=== PATIENT | male | born 1970 | race Caucasian/White ===

== ENCOUNTER 2018-09-01 05:43 | Inpatient (IN) | payer OTHER ==
[~2018-09-01 05:43] MED LIST: Buffered Lidocaine 1% SYRIN* 1 ML/SYRINGE INTRADERM ONE
--- OUTSIDE RECORDS SUMMARY | 2018-09-01 05:48 | XMS REPORT | Continuity of Care Document ---
:1970 External Reference #:[id number] Author Name Efren Jeffries Care Team Providers Name Role Phone Christopher Smith MD Primary Care Physician Unavailable Payers Date Identification Numbers Payment Provider Subscriber Effective: 2018 Policy Number: [id number] Yordy Solorzano PayID: [id number] [address] [place] [address] Onset: 2018 Policy Number: [id number] Travel[employer] Leonel Solorzano Group Name: (d) [phone] [address] PayID: [place] [address] Expires: 2018 Policy Number: [id number] Controverted Leonel Solorzano Onset: 2018 PayID: [id number] Effective: 2018 Policy Number: [id number] Medicaid Leonel Solorzano Expires: 2018 Group Name: 1 1 [address] PayID: [id number] [place] [address] Problems Active Problems Provider Date Carpal tunnel syndrome of left wrist Christopher Smith MD Onset: 04/15/2018 Lateral epicondylitis Christopher Smith MD Onset: 04/15/2018 Brachial plexus disorder Christopher Smith MD Onset: 04/15/2018 Family History Date Family Member(s) Observation Comments Father Alcoholism Living Age 75yrs Mother No Current Problems Living Age 81yrs Social History Type Date Description Comments Sex Unknown Marital Status Single Lives With Roommate Occupation Currently Working [employer] Occupation currently unemployed Tobacco Use Start: Unknown Current Cigarette Pack Years 15-20yrs Smoker 5-10 Cigarettes Daily ETOH Use Drinks Alcoholic Beverages Rarely ETOH Use Current Alcoholic 6-12 drinks weekly Beverage ETOH Use pt is currenlty abusing etoh and gabapentin Recreational Drug Use Denies Drug Use Tobacco Use Start: Unknown Light tobacco smoker (10 or fewer cigarettes/day) Smoking Status Reviewed: 08/19/18 Light tobacco smoker (10 or fewer cigarettes/day) Exercise Type/Frequency Does not exercise Currently Active Patient is currently not sexually active Allergies, Adverse Reactions, Alerts Description No Known Drug Allergies Medications Active Medications SIG Qnty Indications Ordering Provider Date Gabapentin 2 bid and one 150caps M50.10 Christopher 04/01/2018 300mg at noon MD Sarah Capsules Centrum Silver 1 by mouth Unknown Tablets every day History Medications Gabapentin 2 by mouth 180caps M50.10 Christopher Smith 03/22/2018 - 100mg three times a 04/01/2018 Capsules day Wrist use on lt 1units G56.02 Christopher Smith 03/22/2018 - Splint/Cock-Up/Lef wrist every 07/26/2018 t/Canvas/Large night Misc Tennis Elbow Strap use below the 1units M77.12 Christopher Smith 2018 - Lt elbow 07/26/2018 Misc daily Ibuprofen 1 by mouth 45tabs M25.512 Christopher Smith 03/16/2018 - 800mg three times a 07/26/2018 Tablets day Vital Signs Date Vital Result Comment 08/19/2018 8:16am Height 73 inches 6'1" Weight 215.00 lb Heart Rate 88 /min BP Systolic 118 mmHg BP Diastolic 88 mmHg Body Temperature 96.9 F O2 % BldC Oximetry 95 % BMI (Body Mass Index) 28.4 kg/m2 08/12/2018 11:09am Height 72 inches 6'0" Weight 190.00 lb BP Systolic Sitting 128 mmHg BP Diastolic Sitting 80 mmHg Pain Level 11 BMI (Body Mass Index) 25.8 kg/m2 07/27/2018 2:15pm Height 72 inches 6'0" Weight 212.00 lb Heart Rate 78 /min BP Systolic Sitting 136 mmHg BP Diastolic Sitting 89 mmHg Respiratory Rate 24 /min no resp difficulties Pain Level 10 O2 % BldC Oximetry 97 % BMI (Body Mass Index) 28.7 kg/m2 06/27/2018 1:42pm Height 72 inches 6'0" Weight 212.00 lb Heart Rate 95 /min BP Systolic Sitting 126 mmHg BP Diastolic Sitting 74 mmHg Respiratory Rate 16 /min Body Temperature 98.1 F Pain Level 9 BMI (Body Mass Index) 28.7 kg/m2 06/22/2018 2:33pm Height 72 inches 6'0" Weight 212.56 lb BP Systolic Sitting 130 mmHg BP Diastolic Sitting 82 mmHg Body Temperature 98.2 F BMI (Body Mass Index) 28.8 kg/m2 06/06/2018 10:37am Height 72 inches 6'0" Weight 210.00 lb Heart Rate 88 /min BP Systolic 128 mmHg BP Diastolic 78 mmHg O2 % BldC Oximetry 95 % BMI (Body Mass Index) 28.5 kg/m2 05/04/2018 9:15am Weight 212.00 lb BP Systolic 136 mmHg BP Diastolic 92 mmHg 04/19/2018 3:17pm Weight 206.00 lb BP Systolic 146 mmHg BP Diastolic 95 mmHg 04/15/2018 8:30am Weight 203.00 lb BP Systolic Sitting 142 mmHg BP Diastolic Sitting 88 mmHg 03/30/2018 4:58pm Weight 203.00 lb BP Systolic 134 mmHg BP Diastolic 68 mmHg 03/18/2018 10:05am Height 72.75 inches 6'0.75" Weight 190.00 lb Heart Rate 106 /min BP Systolic Sitting 158 mmHg BP Diastolic Sitting 100 mmHg Respiratory Rate 18 /min Pain Level 8 BMI (Body Mass Index) 25.2 kg/m2 03/16/2018 10:16am Height 72.75 inches 6'0.75" Weight 197.00 lb Heart Rate 106 /min BP Systolic 134 mmHg BP Diastolic 86 mmHg Respiratory Rate 16 /min BMI (Body Mass Index) 26.2 kg/m2 Results Test Date Facility Test Result H/L Range Note Lipid Profile 06/29/2018 [facility] Triglycerides 58 mg/dL 1 (Trig/Chol/HDL) [address] [place] [address] [phone] Cholesterol 208 mg/dL 2 HDL Cholesterol 96.2 mg/dL 3 LDL Cholesterol 100 mg/dL 4 Basic Metabolic Panel 06/29/2018 [facility] Sodium 141 mmol/L N 135-145 [address] [place] [address] [phone] Potassium 4.6 mmol/L N 3.5-5.0 Chloride 106 mmol/L N 101-111 Co2 Carbon Dioxide 28 mmol/L N 22-32 Anion Gap 7 mmol/L N 2-11 Glucose 84 mg/dL N 70-100 Blood Urea Nitrogen 11 mg/dL N 6-24 Creatinine 0.85 mg/dL N 0.67-1.17 BUN/Creatinine Ratio 12.9 N 8-20 Calcium 10.0 mg/dL N 8.6-10.3 Egfr Non- 96.2 >60 Egfr 116.4 >60 5 CBC Auto Diff 06/29/2018 [facility] White Blood 7.8 10^3/uL N 3.5-10.[address] [place] [address] [phone] Red Blood Count 5.18 10^6/uL N 4.18-5.48 Hemoglobin 16.6 g/dL N 14.0-18.0 Hematocrit 50 % N 42-52 Mean Corpuscular Volume 96 fL High 80-94 Mean Corpuscular Hemoglobin 32 pg High 27-31 Mean Corpuscular HGB Conc 34 g/dL N 31-36 Red Cell Distribution Width 14 % N 10.5-15 Platelet Count 275 10^3/uL N 150-450 Mean Platelet Volume 8.5 fL N 7.4-10.4 Abs Neutrophils 4.4 10^3/uL N 1.5-7.7 Abs Lymphocytes 2.2 10^3/uL N 1.0-4.8 Abs Monocytes 0.8 10^3/uL N 0-0.8 Abs Eosinophils 0.3 10^3/uL N 0-0.6 Abs Basophils 0.1 10^3/uL N 0-0.2 Abs Nucleated RBC 0.0 10^3/uL Granulocyte % 56.6 % Lymphocyte % 28.6 % Monocyte % 10.1 % Eosinophil % 3.5 % Basophil % 1.2 % Nucleated Red Blood Cells % 0.0 Laboratory test 06/29/2018 [facility] PSA Screening 1.703 ng/mL N 0-4.000 [address] [place] [address] [phone] Desirable: <150 Borderline High: 150-199 High: 200-499 Very High: >500 2 Desirable: <200 Borderline High: 200-239 High: >239 3 Low: <40 Desirable: 40-60 High: >60 4 Desirable: <100 Near Optimal: 100-129 Borderline High: 130-159 High: 160-189 Very High: >189 5 Because ethnic data is not always readily available, this report includes an eGFR for both -Americans and non- Americans. The National Kidney Disease Education Program (NKDEP) does not endorse the use of the MDRD equation for patients that are not between the ages of 18 and 70, are , have extremes of body size, muscle mass, or nutritional status, or are non- or non-. According to the National Kidney Foundation, irrespective of diagnosis, the stage of the disease is based on the level of kidney function: Stage Description GFR(mL/min/1.73 m(2)) 1 Kidney damage with normal or decreased GFR 90 2 Kidney damage with mild decrease in GFR 60-89 3 Moderate decrease in GFR 30-59 4 Severe decrease in GFR 15-29 5 Kidney failure <15 (or dialysis) 6 Serum levels of PSA measured using the [email or web address] DXI Hybritech immunoassay should not be interpreted as absolute evidence of the presence or absence of disease. The PSA value should be used in conjunction with other pertinent clinical diagnostic procedures. The values obtained with different assay methods or kits cannot be used interchangeably. Procedures Date Code Description Status 08/19/2018 43566 EKG Tracing & Interpretation Completed 03/18/2018 09047 Rad Shoulder Comp, Min. 2 Views Completed Encounters Type Date Location Provider Dx Diagnosis Office Visit 06/28/2018 [facility] Christopher M50.10 Cervical disc 4:00p MD Sarah disorder w radiculopathy, unsp cervical region Office Visit 06/27/2018 [facility] M50.10 Cervical disc 1:30p [facility] MD Lee disorder w radiculopathy, unsp cervical region Office Visit 06/22/2018 [facility] FACUNDO Brown R10.84 Generalized 2:30p abdominal pain R16.0 Hepatomegaly, not elsewhere classified F10.129 Alcohol abuse with intoxication, unspecified T50.905A Adverse effect of unsp drug/meds/biol subst, init R00.0 Tachycardia, unspecified M25.512 Pain in left shoulder R10.84 Generalized abdominal pain M79.602 Pain in left arm R16.0 Hepatomegaly, not elsewhere classified M50.10 Cervical disc disorder w radiculopathy, unsp cervical region F10.129 Alcohol abuse with intoxication, unspecified K62.5 Hemorrhage of anus and rectum T50.905A Adverse effect of unsp drug/meds/biol subst, init R00.0 Tachycardia, unspecified Office Visit 06/06/2018 [facility] Primary Christopher M50.10 Cervical disc 10:30a Mojgan Smith MD disorder w radiculopathy, unsp cervical region Office Visit 05/04/2018 [facility] Primary Christopher M50.10 Cervical disc 9:00a Mojgan Smith MD disorder w radiculopathy, unsp cervical region Office Visit 04/19/2018 [facility] Primary Christopher M54.12 Radiculopathy, 3:00p Mojgan Smith MD cervical region Office Visit 04/15/2018 [facility] Primary Christopher M54.12 Radiculopathy, 8:15a Mojgan Smith MD cervical region Office Visit 04/06/2018 [facility] Primary Christopher S14.3xxD Injury of brachial 11:45a Mojgan Smith MD plexus, subsequent encounter Office Visit 04/01/2018 [facility] Primary Christopher S14.3xxD Injury of brachial 8:00a Mojgan Smith MD plexus, subsequent encounter M54.12 Radiculopathy, cervical region Office Visit 03/30/2018 [facility] Primary Christopher M54.12 Radiculopathy, 4:30p Mojgan Smith MD cervical region Office Visit 03/22/2018 [facility] Primary Christopher G54.0 Brachial plexus 3:30p Mojgan Smith MD disorders G56.02 Carpal tunnel syndrome, left upper limb M77.12 Lateral epicondylitis, left elbow M79.602 Pain in left arm Office Visit 03/18/2018 9:30a [facility] M I99.8 Other disorder of [facility] MD circulatory system AT [place] G54.0 Brachial plexus disorders M25.512 Pain in left shoulder Office Visit 03/16/2018 10:15a [facility] Primary Christopher M25.512 Pain in left Care MD Sarah shoulder Office Visit 03/16/2018 10:00a [facility] Primary Christopher Z00.01 Encounter for Mojgan Smith MD general adult medical exam w abnormal findings M25.512 Pain in left shoulder Z12.5 Encounter for screening for malignant neoplasm of prostate Plan of Treatment Future Appointment(s):12/02/2018 10:00 am - Jailene Howard MD at [facility]10/03/2018 1:00 pm - FACUNDO Kilgore at [facility]09/01/2018 7:30 am - Jailene Howard MD at [facility]08/24/2018 9:30 am - Christopher Smith MD at [facility]03/23/2019 4:00 pm - Christopher Smith MD at [facility]06/2018 - Christopher Smith, MDM50.10 Cervical disc disorder with radiculopathy , unspecified qbbdmH80.818 Encounter for other preprocedural imvbkvwwgeuI23.200 Nicotine dependence, unspecified, uncomplicatedNew Xrays:Chest PA & Lat 2 VWS, Ordered: 08/19/18
--- OUTSIDE RECORDS SUMMARY | 2018-09-01 05:48 | XMS REPORT | Continuity of Care Document ---
:1970 External Reference #:[id number] Author Name Efren Jeffries Care Team Providers Name Role Phone Christopher Smith MD Primary Care Physician Unavailable Payers Date Identification Numbers Payment Provider Subscriber Effective: 2018 Policy Number: [id number] Yordy Solorzano PayID: [id number] [address] [place] [address] Onset: 2018 Policy Number: [id number] [employer] Leonel Solorzano Group Name: (u) [phone] [address] PayID: [place] [address] Expires: 2018 Policy Number: [id number] Controverted Leonel Solorzano Onset: 2018 PayID: [id number] Effective: 2018 Policy Number: [id number] Medicaid Leonel Solorzano Expires: 2018 Group Name: 1 1 [address] PayID: [id number] [place] [address] Problems Active Problems Provider Date Carpal tunnel [...] Result H/L Range Note Lipid Profile 06/29/2018 [facility] Triglycerides 58 mg/dL 1 (Trig/Chol/HDL) [address] [place] [address] [phone] Cholesterol 208 mg/dL 2 HDL Cholesterol 96.2 mg/dL 3 LDL Cholesterol 100 mg/dL 4 Basic Metabolic Panel 06/29/2018 [facility] Sodium 141 mmol/L N 135-145 [address] [place] [address] [phone] Potassium 4.6 mmol/L N 3.5-5.0 Chloride 106 mmol/L N 101-111 Co2 Carbon Dioxide 28 mmol/L N 22-32 Anion Gap 7 mmol/L N 2-11 Glucose 84 mg/dL N 70-100 Blood Urea Nitrogen 11 mg/dL N 6-24 Creatinine 0.85 mg/dL N 0.67-1.17 BUN/Creatinine Ratio 12.9 N 8-20 Calcium 10.0 mg/dL N 8.6-10.3 Egfr Non- 96.2 >60 Egfr 116.4 >60 5 CBC Auto Diff 06/29/2018 [facility] White Blood 7.8 10^3/uL N 3.5-10.[address] [place] [address] [phone] Red Blood Count 5.18 10^6/uL N 4.18-5.48 [...] Blood Cells % 0.0 Laboratory test 06/29/2018 [facility] PSA Screening 1.703 ng/mL N 0-4.000 [address] [place] [address] [phone] Desirable: <150 Borderline High: 150-199 High: [...] Serum levels of PSA measured using the [employer] DXI Hybritech immunoassay should not be interpreted as absolute evidence of the presence or absence of disease. The PSA value should be used in conjunction with other pertinent clinical diagnostic procedures. The values obtained with different assay methods or kits cannot be used interchangeably. Procedures Date Code Description Status 08/19/2018 92530 EKG Tracing & Interpretation Completed 03/18/2018 48863 Rad Shoulder Comp, Min. 2 Views Completed Encounters Type Date Location Provider Dx Diagnosis Office Visit 06/28/2018 [facility] Christopher M50.10 Cervical disc 4:00p MD Sarah disorder w radiculopathy, unsp cervical region Office Visit 06/27/2018 [facility] M50.10 Cervical disc 1:30p [facility] MD Lee disorder w radiculopathy, unsp cervical region Office Visit 06/22/2018 [facility] FACUNDO Brown R10.84 Generalized 2:30p [...] init R00.0 Tachycardia, unspecified Office Visit 06/06/2018 [facility] Primary Christopher M50.10 Cervical disc 10:30a Mojgan Smith MD disorder w radiculopathy, unsp cervical region Office Visit 05/04/2018 [facility] Primary Christopher M50.10 Cervical disc 9:00a Mojgan Smith MD disorder w radiculopathy, unsp cervical region Office Visit 04/19/2018 [facility] Primary Christopher M54.12 Radiculopathy, 3:00p Mojgan Smith MD cervical region Office Visit 04/15/2018 [facility] Primary Christopher M54.12 Radiculopathy, 8:15a Mojgan Smith MD cervical region Office Visit 04/06/2018 [facility] Primary Christopher S14.3xxD Injury of brachial 11:45a Mojgan Smith MD plexus, subsequent encounter Office Visit 04/01/2018 [facility] Primary Christopher S14.3xxD Injury of brachial 8:00a Mojgan Smith MD plexus, subsequent encounter M54.12 Radiculopathy, cervical region Office Visit 03/30/2018 [facility] Primary Christopher M54.12 Radiculopathy, 4:30p Mojgan Smith MD cervical region Office Visit 03/22/2018 [facility] Primary Christopher G54.0 Brachial plexus 3:30p Mojgan Smith MD disorders G56.02 Carpal tunnel syndrome, left upper limb M77.12 Lateral epicondylitis, left elbow M79.602 Pain in left arm Office Visit 03/18/2018 9:30a [facility] M I99.8 Other disorder of [facility] MD circulatory system AT [place] G54.0 Brachial plexus disorders M25.512 Pain in left shoulder Office Visit 03/16/2018 10:15a [facility] Primary Christopher M25.512 Pain in left Care MD Sarah shoulder Office Visit 03/16/2018 10:00a [facility] Primary Christopher Z00.01 Encounter for Mojgan Smith MD general adult medical exam w abnormal findings M25.512 Pain in left shoulder Z12.5 Encounter for screening for malignant neoplasm of prostate Plan of Treatment Future Appointment(s):12/02/2018 10:00 am - Jailene Howard MD at [facility]10/03/2018 1:00 pm - FACUNDO Kilgore at [facility]09/01/2018 7:30 am - Jailene Howard MD at [facility]08/24/2018 9:30 am - Christopher Smith MD at [facility]03/23/2019 4:00 pm - Christopher Smtih MD at [facility]06/2018 - Christopher Smith, MDM50.10 Cervical disc disorder with radiculopathy , unspecified vcxkpO79.818 Encounter for other preprocedural nzrcwjfevmkE28.200 Nicotine dependence, unspecified, uncomplicatedNew Xrays:Chest PA & Lat 2 VWS, Ordered: 08/19/18
[2018-09-01] MEDS ORDERED: Famotidine IV* 10 MG/ML 2 ML (20 mg) IV ONE (06:00)
[2018-09-01] MEDS ORDERED: Lactated Ringers 1000 ML Bag* 1,000 ML IV SCH ×2 (06:00→14:00)
[2018-09-01] MEDS ORDERED: Buffered Lidocaine 1% SYRIN* 1 ML/SYRINGE INTRADERM ONE (06:21)
[2018-09-01] MEDS ORDERED: ceFAZolin 2 GM in NS PREMIX(*) 2 GM/100 ML BAG IVPB ONE ×2 (06:21→12:20)
[2018-09-01] MEDS ORDERED: Famotidine IV* 10 MG/ML 2 ML (20 mg) ONE (06:21)
[2018-09-01] MEDS ORDERED: Thrombin 5,000 UNITS* 1 APPLIC KIT - topical use - TOPICAL ONE (06:35)
[2018-09-01] MEDS ORDERED: Lidocaine 1% w EPI 1:200,000* 30 ML VIAL ONE (06:35)
[2018-09-01] MEDS ORDERED: Bacitracin INJECTION* 50,000 UNITS ONE (06:35)
[2018-09-01] MEDS ORDERED: fentaNYL* 50 MCG/ML 2 ML VIAL (100 MCG VIAL) ONE (07:07)
[2018-09-01] MEDS ORDERED: Phenylephrine 10 MG/ML VIAL* 1 ML VIAL ONE (07:07)
[2018-09-01] MEDS ORDERED: Lidocaine 2% PF * 5 ML VIAL ONE (07:07)
[2018-09-01] MEDS ORDERED: Propofol* 500 MG/50 ML BTL ONE (07:07)
[2018-09-01] MEDS ORDERED: Sodium Chloride 0.9%* 10 ML ONE (07:07)
[2018-09-01] MEDS ORDERED: Ondansetron INJ* 2 MG/ML VIAL ONE (07:07)
[2018-09-01] MEDS ORDERED: Dexamethasone IV* 4 MG/ML 1 ML (4 MG) ONE (07:07)
[2018-09-01] MEDS ORDERED: Cisatracurium* 2 MG/ML MDV 5 ML ONE (07:07)
[2018-09-01] MEDS ORDERED: Propofol* 10 MG/ML 20 ML BTL ONE ×3 (07:07→11:31)
[2018-09-01] MEDS ORDERED: KETAMINE HCL* 50 MG/ML 10 ML VIAL ONE (07:07)
[2018-09-01] MEDS ORDERED: Remifentanil* 2 MG VIAL ONE ×4 (07:08→11:28)
[2018-09-01] MEDS ORDERED: Midazolam* 1 MG/ML 10 ML VIAL (10 MG) ONE (07:08)
[2018-09-01] MEDS ORDERED: Artificial Tear OPHTH.OINT* 3.5 GM ONE (07:09)
[2018-09-01] MEDS ORDERED: EPHEDrine (Pressors)* 50 MG/ML VIAL ONE (08:43)
[2018-09-01] MEDS ORDERED: Naloxone* 0.4 MG/ML 1 ML VIAL IV PRN (10:09)
[2018-09-01] MEDS ORDERED: Acetaminophen IV 1GM/100ML * 1,000 MG/100 ML VIAL IVPB ONE (10:09)
[2018-09-01] MEDS ORDERED: fentaNYL* 50 MCG/ML 2 ML VIAL (100 MCG VIAL) IV PRN (10:09)
[2018-09-01] MEDS ORDERED: Ondansetron INJ* 2 MG/ML VIAL IV PRN ×2 (10:09→13:30)
[2018-09-01] MEDS ORDERED: HYDROmorphone INJ1* 1 MG/ML SYRINGE ONE ×2 (11:13→13:07)
[2018-09-01] MEDS ORDERED: ceFAZolin VIAL(*) VIAL ONE (12:15)
[2018-09-01] MEDS ORDERED: Sterile Water for Inj* 0 ML ONE (12:16)
[2018-09-01] MEDS ORDERED: Labetalol IV* 5 MG/ML 20 ML VIAL ONE (12:49)
[2018-09-01] MEDS ORDERED: Acetaminophen IV 1GM/100ML * 100 ML ONE (13:07)
[2018-09-01] MEDS: HYDROmorphone INJ1* 1 MG/ML SYRINGE IV PRN ×2 (13:08→13:27)
[2018-09-01] MEDS ORDERED: HYDROcodone/ACETAMIN 5-325 MG* 1 TAB PO PRN ×2 (13:30)
[2018-09-01] MEDS ORDERED: Acetaminophen TAB* 325 MG PO PRN ×2 (13:30→13:35)
[2018-09-01] MEDS ORDERED: Magnesium Hydroxide LIQ* 30 ML UDC PO PRN (13:30)
[2018-09-01] MEDS ORDERED: Morphine INJ* 2 MG/ML 1 ML SYRINGE (TWO MG - NEW SYRINGE VERSION) IV PRN (13:35)
[2018-09-01] MEDS ORDERED: LORazepam TAB(*) 1 MG PO SCH (14:00)
--- NOTE | 2018-09-01 14:20 | OP ---
OPERATIVE REPORT: DATE OF OPERATION: 09/01/18 DATE OF : 68 SURGEON: Jailene Howard MD SCREEN MAKING TECHNICIAN: Scrub Nurse. ANESTHESIA: General. PRE-OP DIAGNOSES: 1. Degenerative disk disease. 2. Herniated nucleus pulposus. 3. Cervical kyphosis. POST-OP DIAGNOSES: 1. Degenerative disk disease. 2. Herniated nucleus pulposus. 3. Cervical kyphosis. OPERATIVE PROCEDURE: The patient underwent anterior cervical diskectomy and fusion at C4-5, C5-6, and C6-7 with PEEK interbody cages, locally harvested bone graft, DBX, plate and screws. ESTIMATED BLOOD LOSS: 10 cc. COMPLICATIONS: None. SUMMARY: The patient is a very pleasant 47-year-old gentleman with complaints of neck pain radiating to the left upper extremity after a reported accident at work. He was found to have MRI findings consistent with cervical kyphosis, multilevel degenerative disk disease with multilevel herniated nucleus pulposus and neural foraminal stenosis. After failing conservative treatment modalities , he was offered the option of surgical intervention for the above procedure. After discussing in extent with the patient regarding the expectations, limitations, and possible complications of the procedure with complications including, but not limited to bleeding, infection, risk of injury to adjacent structures, coma, paralysis, , need for additional procedures, anesthesia risks, stroke, blindness, cancer, instability, hardware failure, adjacent level disease, pseudoarthrosis, spinal fluid leak, recurrent laryngeal nerve injury, Man syndrome, injury to the esophagus or trachea, postoperative hematoma, DVT , PE, need for tracheostomy or gastrostomy, scar formation; the patient was agreeable to proceed with surgery and informed consent was obtained. The patient understood that his condition may not improve and in fact may get worse after surgery and that he may need to have additional procedures in the future. He also understood that operative plan may be modified according to intraoperative findings and conditions and that the procedure may be abandoned or done in more than 1 stages. The patient understood that he may require prolonged ICU stay, prolonged rehabilitation, or need for tracheostomy or gastrostomy. DESCRIPTION OF PROCEDURE: The patient was brought to the operating room and was placed under general anesthesia by the anesthesia team. He was carefully positioned supine on the Jairo table and all bony prominences were meticulously padded. His skin was prepped and draped in the standard fashion. After appropriate surgical pause and patient identification, the level of the surgical incision was determined with intraoperative fluoroscopic imaging and a right transverse incision over the C5-6 disk space was performed after infiltrating the skin with local anesthetic. A #10 surgical blade was used to incise the skin. The incision was carried down to the subcutaneous tissue and the skin was undermined with tenotomy scissors. The platysma was then gently elevated and divided with sharp dissection. Tenotomy scissors were used to undermine the platysma. After developing the plane between the medial border of the sternocleidomastoid and the medial structures with sharp and dull dissection, the prevertebral fascia was identified and was gently divided. The anterior part of the cervical spine was identified and correct operative level was confirmed with intraoperative fluoroscopic imaging. [place] pins were placed at the C4, C5, C6, and C7 vertebral bodies, and after self-retaining retractors were introduced into the field, a diskectomy was performed at C6-7 level under microscopic magnification. This was performed after incising the annulus fibrosus with #15 surgical blade and the diskectomy was performed with a series of curettes, pituitary rongeurs, Kerrison punches, and high-speed drill. The posterior longitudinal ligament was then divided and extensive foraminotomies were performed bilaterally, especially towards the left side. The foramina was found to be patent at the end of the procedure. After copious irrigation, confirmation of meticulous hemostasis, after meticulous inspection and after confirming that the thecal sac was free of any pressure phenomenon and the spinal cord was pulsating nicely, a #9 PEEK interbody cage from [employer] was inserted after being filled with locally harvested bone graft at the time of the disk space preparation as well as DBX. The [place] pin was then removed from the C7 vertebral body and meticulous hemostasis was obtained. The procedure then was repeated for the C4-5 and C5-6 disk space. Every time that the self- retaining retractors were repositioned, the Apfelbaum maneuver was performed. An 9 mm PEEK interbody cage was introduced at C4-5 level and 8 mm at the C5-6 level. Lordotic graft was used in all disk spaces. Then, the [place] pins were removed, and after confirmation of meticulous hemostasis and copious irrigation, a [employer] plate was placed after appropriate sizing and increased bending in order to add to the cervical lordosis. This was secured in place with titanium screws and the locking mechanism was engaged. Intraoperative fluoroscopic imaging confirmed excellent placement of the hardware. Then, the self-retaining retractors were removed, and after confirmation of meticulous hemostasis, copious irrigation and meticulous inspection, the wound was closed by layers over a Gerry drain which was tunneled through a separate stab wound incision. 2-0 interrupted Vicryl sutures were used to approximate the platysma while inverted interrupted 2-0 Vicryl sutures were used to approximate the subcutaneous tissue. The skin was then approximated and covered with Dermabond and sterile sponges. At the end of the procedure, all counts were reported to be correct. The patient remained hemodynamically stable throughout the case while intraoperative electrophysiological monitoring remained stable throughout the case. The patient was then extubated and was transferred to Recovery in excellent condition. [id number] #: [id number]
--- NOTE | 2018-09-01 15:02 | CONS ---
CC: Dr. Howard; Dr. Smith * CONSULTATION REPORT: DATE OF CONSULT: 09/01/18 - ROOM #346 PRIMARY CARE PROVIDER: Dr. Christopher Smith. REQUESTING PHYSICIAN: Dr. Howard from neurosurgery. CHIEF COMPLAINT: Left arm pain. HISTORY OF PRESENT ILLNESS: Leonel Solorzano is a 47-year-old male with history of significant alcohol use who has problem with degenerative disk disease of the cervical spine manifesting itself in left arm weakness and tingling for the past several months. The patient just underwent anterior cervical diskectomy performed by Dr. Howard today. Medicine is involved in this patient with postoperative consult for management. PAST MEDICAL HISTORY: 1. History of significant alcohol use. 2. History of degenerative disk disease. PAST SURGICAL HISTORY: 1. In 1987, status post "lung surgery" for collapsed lung. I suspect the patient had pneumothorax and a chest tube placed. 2. Status post traumatic finger #3 and #4 amputation. MEDICATIONS: Include: 1. Gabapentin 300 mg 3 times a day. 2. Centrum multivitamin 1 tablet daily. ALLERGIES: No known drug allergies. FAMILY HISTORY: Positive for father with alcoholism. SOCIAL HISTORY: The patient is single. He used to work at [employer] up until March. His surrogate decision maker person is his girlfriend, Matilda Urban. He states that he drinks "at least a 6-pack a day." He has history of 15 pack-year smoking. He is down to 10 cigarettes a day. REVIEW OF SYSTEMS: Positive for left arm weakness and pain ever since March 2018. All the remaining 12 systems were reviewed with the patient and were, otherwise, negative. PHYSICAL EXAM: Blood pressure of 141/99, heart rate of 104 and regular, respiratory rate 17, oxygen saturation 97% on 4 L of oxygen via nasal cannula, temperature of 98.2. General: The patient is a very pleasant 47-year-old male who is in no acute distress. Alert, awake, and oriented x3. HEENT: Head: Atraumatic, normocephalic. Eyes: Pupils are equal, reactive to light and accommodation. Oropharynx is clear. Mucosa moist. Neck: Supple. No JVD and no bruits bilaterally. The patient's anterior neck incision is postoperatively dressed. The patient also is in C-spine collar. The dressings were not removed for wound evaluation. Cardiovascular: Regular rate and rhythm. No murmur. Respiratory: Clear to auscultation bilaterally. Abdomen: Soft, nontender. Bowel sounds are present in all 4 quadrants. Extremities: There is no edema. Pulses are 2+ bilaterally. No clubbing or cyanosis. The patient is status post amputation of the left third and fourth fingers with stumps healed well. Neuro Evaluation: Cranial nerves II through XII are grossly intact. Motor strength is decreased in the left upper extremity at 4+/5. Right upper and lower extremity strength is 5/5. LABORATORY DATA: Today, none. ASSESSMENT AND PLAN: 1. Postoperative status post anterior cervical spine diskectomy. The patient is going to be observed on the surgical unit. As per Dr. Howard, the patient can ambulate with assistance and be back on a regular diet. Dr. Howard is going to ask Dr. Lombardo to see the patient in pain consultation. The patient likely will be discharged to home tomorrow. 2. In regards to the patient's history of alcohol abuse, the patient is going to be placed on multivitamin as well as thiamine and folate as well as alcohol withdrawal protocol. 3. For DVT prophylaxis, the patient is going to be placed on sequential compression devices. 4. The patient's code status is full. His surrogate is his girlfriend, Matilda. TIME SPENT: Approximately 62 minutes were spent in consultation of this patient , more than half that time was spent [id number] with the patient during the interview and physical exam. [id number]/[facility] #: [id number] JAZ
[2018-09-01] MEDS: Gabapentin CAP(*) 300 MG PO SCH ×2 (15:27→22:53)
[2018-09-01] MEDS: Thiamine TAB* 100 MG TAB PO SCH (15:28)
[2018-09-01] MEDS ORDERED: oxyCODONE TAB* 5 MG TAB PO PRN (15:30)
[2018-09-01] MEDS: oxyCODONE TAB* 5 MG TAB PO PRN (15:43)
--- NOTE | 2018-09-01 15:44 | CONSULT ---
Consult Consult: INPATIENT PAIN CONSULTATION Leonel Solorzano is a 47 year old male. He was working for [employer] in [place]. On February 20, 2018, he was carrying a case of milk on his left shoulder. He developed a burning pain down his left arm. He thought he was having a heart attack. He left work and went to the ER at [facility]. He had an EKG. He was told he injured his left shoulder and that it was not his heart. He followed up with Dr. Messina. He was sent to physical therapy and was taken out of work. He did not get better. He had an MRI of his cervical spine. He had an VALERIE Exam and the examiner told him he needed surgery. He was referred to Dr. Howard. He was told he would need an ACDF of the C-sspine. He was given gabapentin. He took too many gabapentin, and had to go to the ER for that. He saw me last week. He told me he drinks-a lot- to help with his pain. I could not give him pain medications because he drinks around 12 beers a day. Today he was admitted for surgery. He underwent a ACDF C4 /5, C5/6 and C6/7 with PEEK cages, bone graft and plate and screws. I am asked to see [facility] for pain mangement. 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 left hand Allergies Allergy/AdvReac Type Severity Reaction Status Date / Time No Known Allergies Allergy Verified 09/01/18 06:27 Current Medications Acetaminophen (Tylenol Tab*) 650 mg PO Q4H PRN PRN Reason: FEVER/PAIN Folic Acid (Folvite Tab*) 1 mg PO DAILY [facility] Gabapentin (Neurontin Cap(*)) 300 mg PO TID [facility] Last Admin: 09/01/18 15:27 Dose: 300 mg Lactated Ringer's (Lactated Ringers 1000 Ml Bag*) 1,000 mls @ 75 mls/hr IV .per rate KAYLEIGH Stop: 09/02/18 13:59 Lorazepam (Ativan Tab(*)) 0 - 6 mg PO .PER [facility] PROTOCOL KAYLEIGH; Protocol Magnesium Hydroxide (Milk Of Magnesia Liq*) 30 ml PO DAILY PRN PRN Reason: CONSTIPATION Morphine Sulfate (Morphine Inj (Syringe))*) 2 mg IV Q4H PRN PRN Reason: PAIN - MODERATE TO SEVERE Multivitamins/Minerals (Theragran/Minerals Tab*) 1 tab PO DAILY [facility] Ondansetron HCl (Zofran Inj*) 4 mg IV Q6H PRN PRN Reason: NAUSEA/VOMITING Oxycodone HCl (Roxycodone Tab*) 5 mg PO Q4H PRN PRN Reason: PAIN - MODERATE Oxycodone HCl (Roxycodone Tab*) 10 mg PO Q4H PRN PRN Reason: PAIN - SEVERE Last Admin: 09/01/18 15:43 Dose: 10 mg Thiamine HCl (Vitamin B-1 Tab*) 100 mg PO DAILY [facility] Last Admin: 09/01/18 15:28 Dose: 100 mg SOCIAL HISTORY: Has been drinking 8-12 beers a night, he tells me he started going to [employer] meetings again since he saw me last week. He smokes 1/2 ppd. 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 OOW since injury ROS: No SOB or CP, otherwise negative Vital Signs Temp Pulse Resp BP Pulse Ox 97.5 F 101 20 138/95 96 09/01/18 15:31 09/01/18 15:31 09/01/18 15:45 09/01/18 15:31 09/01/18 15:31 EXAM: NECK: Immobilized in collar LUNGS: Clear HEART: Reg rhythm ABDOMEN: Soft EXTREMITIES: Normal tone. Missing digits 3 & 4 of left hand NEUROLOGIC: Muscle strngth close to 5/5 in all 4 extremities ASSESSMENT: 1. Cervical Radiculopathy 2. S/P ACDF C4/5, C5/6 and C6/7 3. History of Alcohol Abuse PLAN: He has been placed on the [place] protocol by Internal Medicine. I have written him for oxycodone without tylenol. He is on gabapentin. I will write for bowel medications. He may need a little sedative now as he is feeling anxious.
[2018-09-01] MEDS ORDERED: LORazepam TAB(*) 0.5 MG PO PRN (17:48)
[2018-09-01] MEDS ORDERED: Senna TAB PO SCH (21:00)
[2018-09-01] MEDS: Docusate LIQ* 100 MG/10 ML UDC PO SCH (22:56)
[2018-09-02] MEDS: oxyCODONE TAB* 5 MG TAB PO PRN ×5 (00:17→17:16)
[2018-09-02 06:07] LABS: ABS Basophils 0.1 10^3/ul (0-0.2); ABS Lymphocytes 1.6 10^3/ul (1.0-4.8); ABS Monocytes 1.2 10^3/ul (0-0.8); ABS Neutrophils 10.9 10^3/ul (1.5-7.7); Eosinophil % 0.1 %; Hematocrit 45 % (42-52); Hemoglobin 14.9 g/dL (14.0-18.0); Lymphocyte % 11.5 %; Mean Corpuscular HGB Conc 33 g/dL (31-36); Mean Corpuscular Hemoglobin 32 pg (27-31); Mean Corpuscular Volume 96 fL (80-94); Mean Platelet Volume 8.1 fL (7.4-10.4); Nucleated Red Blood Cells % 0.1; Platelet Count 234 10^3/uL (150-450); Red Blood Count 4.65 10^6 /uL (4.18-5.48); Red Cell Distribution Width 15 % (10-15); White Blood Count 13.8 10^3/uL (3.5-10.8)
[2018-09-02 06:20] LABS: BUN/Creatinine Ratio 10.3 (8-20); Calcium 8.8 mg/dL (8.6-10.3); EGFR African American 128.5 (>60); EGFR Non-African American 106.2 (>60); Potassium 3.6 mmol/L (3.5-5.0)
[2018-09-02] MEDS ORDERED: Multivitamins/Minerals TAB PO SCH (09:00)
[2018-09-02] MEDS ORDERED: Folic Acid TAB* 1 MG PO SCH (09:00)
[2018-09-02] MEDS: Docusate LIQ* 100 MG/10 ML UDC PO SCH (09:06)
[2018-09-02] MEDS: Gabapentin CAP(*) 300 MG PO SCH ×2 (09:07→15:22)
[2018-09-02] MEDS: Thiamine TAB* 100 MG TAB PO SCH (09:08)
--- NOTE | 2018-09-02 10:50 | PN ---
Subjective Date of Service: 09/02/18 Interval History: Pt feels well, pain in left arm resolved. Ambulates with a roller walker Objective Active Medications: Acetaminophen (Tylenol Tab*) 650 mg PO Q4H PRN PRN Reason: FEVER/PAIN Docusate Sodium (Colace Liq*) 100 mg PO BID [facility] Last Admin: 09/02/18 09:06 Dose: 100 mg Folic Acid (Folvite Tab*) 1 mg PO DAILY [facility] Last Admin: 09/02/18 09:07 Dose: 1 mg Gabapentin (Neurontin Cap(*)) 300 mg PO TID [facility] Last Admin: 09/02/18 09:07 Dose: 300 mg Lorazepam (Ativan Tab(*)) 0.5 mg PO Q6H PRN PRN Reason: ANXIETY Last Admin: 09/01/18 18:12 Dose: 0.5 mg Magnesium Hydroxide (Milk Of Magnesia Liq*) 30 ml PO DAILY PRN PRN Reason: CONSTIPATION Multivitamins/Minerals (Theragran/Minerals Tab*) 1 tab PO DAILY [facility] Last Admin: 09/02/18 09:08 Dose: 1 tab Ondansetron HCl (Zofran Inj*) 4 mg IV Q6H PRN PRN Reason: NAUSEA/VOMITING Oxycodone HCl (Roxycodone Tab*) 5 mg PO Q4H PRN PRN Reason: PAIN - MODERATE Last Admin: 09/01/18 20:00 Dose: 5 mg Oxycodone HCl (Roxycodone Tab*) 10 mg PO Q4H PRN PRN Reason: PAIN - SEVERE Last Admin: 09/02/18 08:59 Dose: 10 mg Senna (Senokot Tab*) 2 tab PO BEDTIME [facility] Last Admin: 09/01/18 22:55 Dose: 2 tab Thiamine HCl (Vitamin B-1 Tab*) 100 mg PO DAILY [facility] Last Admin: 09/02/18 09:08 Dose: 100 mg Vital Signs - 8 hr 09/02/18 09/02/18 09/02/18 04:00 04:02 04:27 Temperature 97.9 F Pulse Rate 86 Respiratory 16 16 Rate Blood Pressure 139/82 (mmHg) O2 Sat by Pulse 95 94 Oximetry 09/02/18 09/02/18 09/02/18 06:30 08:00 08:59 Temperature 97.5 F 98.4 F Pulse Rate 73 64 Respiratory 16 18 16 Rate Blood Pressure 143/96 145/93 (mmHg) O2 Sat by Pulse 96 98 Oximetry 09/02/18 09:07 Temperature Pulse Rate Respiratory 16 Rate Blood Pressure (mmHg) O2 Sat by Pulse Oximetry Oxygen Devices in Use Now: None Appearance: 47 yo M in nAD, aAOx3 Eyes: No Scleral Icterus, PERRLA Ears/Nose/Mouth/Throat: NL Teeth, Lips, Gums Neck: NL Appearance and Movements; NL JVP, - - Huslia J collar in place, base of neck ncision covered with post op dressings. JEANETTE drain arising from the base of neck incision Respiratory: Symmetrical Chest Expansion and Respiratory Effort, Clear to Auscultation Cardiovascular: NL Sounds; No Murmurs; No JVD Abdominal: NL Sounds; No Tenderness; No Distention, No Hepatosplenomegaly Extremities: No Edema, No Clubbing, Cyanosis Skin: No Nodules or Sclerosis Neurological: Alert and Oriented x 3, NL Muscle Strength and Tone Result Diagrams: 09/02/18 05:27 09/02/18 05:27 Assess/Plan/Problems-Billing Assessment:47 yo M with h/o ETOH abuse and left arm weakness due to DJD s/o anterior diskectomy on 09/01/18 - Patient Problems (1) S/P diskectomy Comment: poss d/c today , awaiting neurosurgery visit and decision cont oxycodone prn (2) Alcohol abuse Comment: no symptoms of withdrawal, will d/c WAM (3) DVT prophylaxis Comment: ambulatory Status and Disposition: likely d/c later o today
[2018-09-02] MEDS ORDERED: Cyclobenzaprine TAB* 10 MG PO PRN (12:32)
[2018-09-02 15:26] VITALS: BP 142/88
--- NOTE | 2018-09-02 18:30 | PN ---
Progress Note - Progress Note Date of Service: 09/02/18 SOAP: Subjective: [] No events ON. Ambulates, Tolerates PO well, Voids. Flatus+. Preop LUE pain resolved. Patient wants to go home. Objective: []VSS, Afebrile, Wound s,c,d. Drain output noted. Drain removed. Catheter appears to be intact . Patient tolerate procedure well. AAOx3, JULIA, CN II-XII grossly intact Motor 5/5 all extremities Sensory grossly intact to light touch Assessment: []47 yom POD#1 ACDF C4-5,5-6,6-7 Plan: [] Monitor VS, Neurochecks XR reveals good placement of hardware, good alignment of spine. Cervical SVA 40mm DC today Full instructions were given to the patient. Appreciate IM , Dr Demarco's care. Sheryl Howard MD
--- NOTE | 2018-09-02 22:45 | DS ---
CC: Dr. Smith; Dr. Howard; Dr. Lombardo * DISCHARGE SUMMARY: DATE OF ADMISSION: 09/01/18 DATE OF DISCHARGE: 09/02/18 PRIMARY CARE PROVIDER: Dr. Smith. DISPOSITION ON DISCHARGE: Home. CONDITION ON DISCHARGE: Stable. DISCHARGE DIAGNOSES: 1. Status post anterior cervical diskectomy performed by Dr. Howard on . 2. History of alcohol use. 3. Pain management issues. MEDICATIONS AT DISCHARGE: Include: 1. Oxycodone 5 mg p.o. every 4 hours p.r.n. pain. The patient was prescribed a total of 30 tablets. I-STOP was checked. The patient has no history of recent narcotic prescriptions. 2. Multivitamin 1 tablet daily. 3. Gabapentin 300 mg 3 times a day. LABORATORY DATA AND STUDIES PERFORMED DURING HOSPITAL STAY: White blood cell count of 13.8, hemoglobin of 14.9, hematocrit of 45, and platelets of 234. Sodium was 138, potassium 3.6, chloride 104, carbon dioxide 25, BUN 8, creatinine 0.78. Dr. Howard was following with the patient throughout his hospital stay. SURGERIES PERFORMED: Included, on 09/01/18, anterior cervical diskectomy and fusion of C4-C5, C5-C6, and C6-C7 with PEEK interbody cages, locally harvested bone graft, plate and screws. HOSPITALIZATION COURSE: Leonel Solorzano is a 47-year-old male with history of degenerative disk disease who was observed overnight, status post anterior cervical diskectomy. He did well, he was seen by Dr. Lombardo from Pain Management for postoperative management of patient's pain, who recommended oxycodone treatment. By the time of discharge, the patient was ambulating with a roller walker pretty well and able to ambulate stairs. Dr. Howard recommended for the patient to keep the [place]-J collar for total of 3 weeks. The patient is okay to shower, but no to bathe. He can change the dressings when they get soiled or wet on a daily basis. As activity, there is no driving , bending, or lifting recommended. The patient is to follow up with Dr. Howard next week as already scheduled and Dr. Smith within the next 4 to 7 days. Physical exam at the time of discharge is included in the ED progress note. [id number]/[facility] #: [id number] MTDD
== END 2018-09-02 19:40 | disposition home or self-care (01) | DRG 321 ==
LOC: AA 05:43 → SSU 14:40
PROVIDERS: ADMIT Neurological Surgery; ATTEND Neurological Surgery
PROC: 0RB30ZZ Excision of Cervical Vertebral Disc, Open Approach (ICD-10-PCS; 2018-09-01)
PROC: 0RG20A0 Fusion of 2 or more Cervical Vertebral Joints with Interbody Fusion Device, Anterior Approach, Anterior Column, Open Approach (ICD-10-PCS; principal; 2018-09-01 07:30)
DX: M50.10 Cervical disc disorder with radiculopathy, unspecified cervical region (principal); M48.02 Spinal stenosis, cervical region; M40.202 Unspecified kyphosis, cervical region; F17.210 Nicotine dependence, cigarettes, uncomplicated; F10.10 Alcohol abuse, uncomplicated; Z89.022 Acquired absence of left finger(s); Z81.1 Family history of alcohol abuse and dependence; Z56.0 Unemployment, unspecified
CPT/HCPCS: 36415; 72020; 72040; 80048; 85025; A9270-GY; C1713; C1776; C9359; J0690; J1100; J1170; J2001; J2250; J2270; J2405; J2704; J3010